=== PATIENT | male | born 1960 | race Caucasian/White ===

== ENCOUNTER → 2019-01-01 | Outpatient (CLI) | payer BC ==
[~2019-01-01] MED LIST: AUGMENTIN PO; CITA20TA4 PO; LISI10TA2 PO; VICODIN 5/325MG PO
--- NOTE | 2019-01-02 11:35 | Diagnostic Imaging Report ---
INDICATION: Low TSH. TECHNIQUE: Patient was administered 208 ?Ci of I-123 and 4-hour and 24-hour thyroid uptake and scan was performed. FINDINGS: Four-hour uptake is 11%. 24-hour thyroid uptake is 27%. This is within normal limits. Thyroid scan demonstrates homogeneous uptake of activity throughout both lobes of the thyroid. No hot or cold nodules are identified. IMPRESSION: Normal thyroid uptake and scan. Dictated by: Dictated on workstation # [id number]
== END ==
LOC: RAD 10:17
PROVIDERS: ATTEND Family Medicine
DX: R94.6 Abnormal results of thyroid function studies (principal)
CPT/HCPCS: 78014

== ENCOUNTER → 2019-11-01 | Outpatient (CLI) | payer BC | LOC: LABNPT 08:59 | PROVIDERS: ATTEND Orthopaedic Surgery | DX: Z11.59 Encounter for screening for other viral diseases (principal); Z96.649 Presence of unspecified artificial hip joint | CPT/HCPCS: 87635 ==

== ENCOUNTER → 2020-05-04 | Outpatient (CLI) | payer BC | LOC: LABNPT 05:15 | PROVIDERS: ATTEND Orthopaedic Surgery | DX: Z01.812 Encounter for preprocedural laboratory examination (principal); Z20.828 Contact with and (suspected) exposure to other viral communicable diseases | CPT/HCPCS: 87635 ==

== ENCOUNTER → 2020-06-01 | Outpatient (CLI) | payer BC | LOC: LABNPT 06:10 | PROVIDERS: ATTEND Orthopaedic Surgery | DX: Z01.812 Encounter for preprocedural laboratory examination (principal); Z20.828 Contact with and (suspected) exposure to other viral communicable diseases | CPT/HCPCS: 87635 ==